=== PATIENT | female | born 1990 | race Caucasian/White ===

== ENCOUNTER 2019-01-29 06:07 | Day surgery (SDC) | payer OTHER ==
[2019-01-28 10:54] VITALS: BMI 21.8
[2019-01-29] MEDS ORDERED: Midazolam HCl 2 mg/2 ml Vial ONE (07:35)
--- NOTE | 2019-01-29 07:38 | HP ---
HISTORY OF PRESENT ILLNESS: This is a 28-year-old female who comes in for a colonoscopy for evaluation of hematochezia. The patient has IBS over the years. The patient has never had any bleeding before. The bleeding occurred approximately a month ago. The bleeding was bright red and seen in the commode and tissue paper. The patient comes in for a colonoscopy because of the above reasons. ALLERGIES: NONE. SOCIAL HISTORY: The patient does not smoke, but drinks alcohol socially. MEDICAL ILLNESS: 1. Hypothyroidism. 2. IBS. PHYSICAL EXAMINATION: VITAL SIGNS: Pulse is 70 and blood pressure 110/70. HEENT: Conjunctivae clear. NECK: Supple. No adenitis or thyromegaly noted. CARDIOVASCULAR SYSTEM: First and second heart sounds heard. LUNGS: Clear to auscultation. ABDOMEN: Soft. Abdomen is nontender. No organomegaly or masses. Bowel sounds normal. EXTREMITIES: Reveal no edema. ADMITTING DIAGNOSIS: Hematochezia. PLAN: Colonoscopy. Job ID: [id number]
--- NOTE | 2019-01-29 13:32 | OP ---
DATE OF PROCEDURE: 01/29/2019 OPERATIVE PROCEDURE: Colonoscopy. PREOPERATIVE DIAGNOSIS: Hematochezia. POSTOPERATIVE DIAGNOSIS: Normal colonoscopy except for one small hemorrhoids. DESCRIPTION OF PROCEDURE: The patient was placed on her left lateral position and was given sedation by Anesthesia Department. A rectal exam was done before the scope was advanced into the rectum. No lesions felt on rectal exam. A Pentax videocolonoscope was introduced into the rectum and advanced all the way into the cecum. The prep is very good. The mucosa appears normal throughout the colon with normal vascular pattern. The appendicular opening, ileocecal wall, cecum; no pathology seen. Withdrawal of scope in the cecum, ascending colon, hepatic flexure; no pathology seen. The transverse colon, splenic flexure, descending colon, sigmoid colon; no pathology seen. The patient had redundant, tortuous sigmoid colon. Retroflexion of scope in the rectum show a small hemorrhoids. DISCHARGE PLANNING: This is a 28-year-old female, came for a colonoscopy, came with hematochezia. The colonoscopy was basically negative. DISCHARGE RECOMMENDATIONS: 1. The patient advised to call me if she develops abdominal pain, hematochezia. 2. In the absence of any of the above symptoms, the patient will come back to me in 2 weeks. Job ID: [id number]
[2019-01-29] MEDS ORDERED: PROPOFOL 200 MG/20 ML VIAL ONE (16:19)
[2019-01-29] MEDS ORDERED: Lidocaine 1% PF 5 ML VIAL ONE (16:19)
== END 2019-01-29 09:50 | disposition home or self-care (01) ==
LOC: SDC 06:07
PROVIDERS: ATTEND Internal Medicine Gastroenterology
PROC: 0DJD8ZZ Inspection of Lower Intestinal Tract, Via Natural or Artificial Opening Endoscopic (ICD-10-PCS; principal; 2019-01-29)
DX: K64.9 Unspecified hemorrhoids (principal); K63.89 Other specified diseases of intestine; E03.9 Hypothyroidism, unspecified; K58.9 Irritable bowel syndrome, unspecified; Z79.3 Long term (current) use of hormonal contraceptives; Z79.899 Other long term (current) drug therapy
CPT/HCPCS: J2001; J2250; J2704